=== PATIENT | female | born 1960 | race Caucasian/White ===

== ENCOUNTER 2017-10-08 03:19 | Emergency (ER) | payer BC, MEDICAID ==
[~2017-10-08] VITALS: Ht 157.5 cm; Wt 72.1 kg
[2017-10-08 03:21] VITALS: BP 146/89
[2017-10-08] MEDS ORDERED: LEVO75TA5 PO (03:47)
== END 2017-10-08 05:38 | disposition home or self-care (01) ==
LOC: ED 04:45
DX: R05 Cough (principal); R11.10 Vomiting, unspecified; Z90.89 Acquired absence of other organs
CPT/HCPCS: 71020; 99284

== ENCOUNTER 2017-10-17 20:41 | Emergency (ER) | payer MEDICAID ==
[~2017-10-17] VITALS: Ht 157.5 cm; Wt 70.4 kg
[~2017-10-17 20:41] MED LIST: LEVO75TA5 PO
[2017-10-17 20:43] VITALS: BP 157/87
[2017-10-17] MEDS ORDERED: ONDANSETRON ODT 4 MG PO ONE (21:00)
[2017-10-17] MEDS ORDERED: ONDANSETRON ODT 4 MG ONE (21:16)
== END 2017-10-17 22:28 | disposition home or self-care (01) ==
LOC: ED 22:05
DX: S09.90XA Unspecified injury of head, initial encounter (principal); R11.0 Nausea; E03.9 Hypothyroidism, unspecified; V49.9XXA Car occupant (driver) (passenger) injured in unspecified traffic accident, initial encounter; Y93.89 Activity, other specified; Y92.89 Other specified places as the place of occurrence of the external cause; Y99.8 Other external cause status
CPT/HCPCS: 70450; 99284

== ENCOUNTER 2017-11-06 18:31 | Emergency (ER) | payer MEDICAID, OTHER ==
[~2017-11-06] VITALS: Ht 157.5 cm; Wt 69.3 kg
[2017-11-06 18:33] VITALS: BP 158/89
[2017-11-06] MEDS ORDERED: ASPIRIN 81 MG TABLET CHEW PO ONE (19:00)
[2017-11-06 19:10] LABS: BASOPHILS # (AUTO) 0.06 x10^3/uL (0-0.1); BASOPHILS % (AUTO) 1 % (0-1); EOSINOPHILS % (AUTO) 3 % (1-7); LYMPHOCYTES # (AUTO) 2.95 x10^3/uL (1-3.4); LYMPHOCYTES % (AUTO) 48 % (22-44); MD NO; MEAN CORPUSCULAR HEMOGLOBIN 31.8 pg (27.0-34.8); MEAN CORPUSCULAR HGB CONC 33.4 g/dL (32.4-35.8); MEAN CORPUSCULAR VOLUME 95.2 fL (80-100); MEAN PLATELET VOLUME 9.4 fL (7.4-10.4); MONOCYTES # (AUTO) 0.42 x10^3/uL (0.2-0.8); MONOCYTES % (AUTO) 7 % (2-9); NEUTROPHILS % (AUTO) 41 % (42-75); PLATELET COUNT 284 x10^3/uL (130-400); RED BLOOD COUNT 4.43 x10^6/uL (3.82-5.3); RED CELL DISTRIBUTION WIDTH 12.7 % (9.6-15.2)
[2017-11-06 19:19] LABS: ALBUMIN 4.4 g/dL (3.4-5.0); ANION GAP 7 mmol/L (5-15); CALCIUM 8.9 mg/dL (8.5-10.1); CHLORIDE 106 mmol/L (98-107); CREATININE 1.28 mg/dL (0.55-1.02)
[2017-11-06 19:23] LABS: TROPONIN I < 0.015 ng/mL (0.000-0.045)
[2017-11-06] MEDS ORDERED: ASPIRIN 81 MG TABLET CHEW ONE (19:25)
== END 2017-11-06 21:06 | disposition home or self-care (01) ==
LOC: ED 20:45
DX: R07.2 Precordial pain (principal); F41.1 Generalized anxiety disorder
CPT/HCPCS: 36415; 71046; 80048; 82040; 83880; 84484; 85025; 93005; 99285

== ENCOUNTER 2019-12-30 04:25 | Emergency (ER) | payer MEDICAID ==
[~2019-12-30] VITALS: Ht 160 cm; Wt 55.4 kg
[~2019-12-30 04:25] MED LIST changes: +BUSP7.5T3 PO
[2019-12-30 04:27] VITALS: BP 148/90
[2019-12-30 05:55] LABS: MEAN CORPUSCULAR HEMOGLOBIN 32.2 pg (27.0-34.8); MEAN CORPUSCULAR HGB CONC 34.1 g/dL (32.4-35.8); MEAN CORPUSCULAR VOLUME 94.4 fL (80-100); MEAN PLATELET VOLUME 9.7 fL (7.4-10.4); PLATELET COUNT 263 x10^3/uL (130-400); RED BLOOD COUNT 4.21 x10^6/uL (3.82-5.3); RED CELL DISTRIBUTION WIDTH 12.8 % (9.6-15.2)
[2019-12-30 06:04] LABS: ALANINE AMINOTRANSFERASE 24 U/L (12-78); ALBUMIN 4.1 g/dL (3.4-5.0); ANION GAP 7 mmol/L (5-15); CHLORIDE 102 mmol/L (98-107); CREATININE 0.99 mg/dL (0.55-1.02); T4 (THYROXINE) 11.7 mcg/dL (4.8-13.9)
--- NOTE | 2019-12-30 06:06 | NUR ---
PT REQUESTING A MEDICATION TO SLOW HER HEART RATE. PT WAS INFORMED HER HEART RATE IS 90 AND REGULAR. PT INSISTS IT IS TOO HIGH. INFORMED. ATARAX ORDERED HOWEVER STATES TO HOLD IF PT IS DRIVING HOME. THIS WAS DISCUSSED WITH PT WHOM STATES SHE HAS ANXIOLYTIC MEDS AT HOME AND DOES NOT WANT THE ATARAX AT THIS TIME. UA OBTAINED AND TUBED TO LAB. PT WAS UNABLE TO PRODUCE STOOL SAMPLE. PT DENIES FURTHER NEEDS AT THIS TIME. CALL LIGHT ON LAP.
[2019-12-30 06:12] LABS: ALKALINE PHOSPHATASE 59 U/L (45-117); BILIRUBIN,TOTAL 0.5 mg/dL (0.2-1.0); TOTAL PROTEIN 7.8 g/dL (6.4-8.2)
[2019-12-30 06:19] LABS: CULTURE INDICATED? NO; MICROSCOPIC NOT IND
[2019-12-30 06:45] LABS: BASOPHILS # (AUTO) 0.02 x10^3/uL (0-0.1); BASOPHILS % (AUTO) 1 % (0-1); EOSINOPHILS # (AUTO) 0.02 x10^3/uL (0-0.4); EOSINOPHILS % (AUTO) 1 % (1-7); LYMPHOCYTES # (AUTO) 0.86 x10^3/uL (1-3.4); LYMPHOCYTES % (AUTO) 33 % (22-44); MD SCAN; MONOCYTES # (AUTO) 0.24 x10^3/uL (0.2-0.8); MONOCYTES % (AUTO) 9 % (2-9); NEUTROPHILS # (AUTO) 1.46 x10^3/uL (1.8-6.8); NEUTROPHILS % (AUTO) 56 % (42-75)
[2019-12-30 08:27] LABS: CLOSTRIDIUM DIFFICILE ANTIGEN NEGATIVE; CLOSTRIDIUM DIFFICILE TOXIN NEGATIVE (Negative)
--- NOTE | 2019-12-30 09:12 | NUR ---
Patient given discharge instructions and they have confirmed that they understand the instructions. Patient ambulatory with steady gait.
== END 2019-12-30 09:13 | disposition home or self-care (01) ==
LOC: ED 06:11
DX: F41.1 Generalized anxiety disorder (principal); R19.7 Diarrhea, unspecified; E03.9 Hypothyroidism, unspecified
CPT/HCPCS: 36415; 80053; 81003; 83690; 84436; 84481; 85025; 87324; 89055; 99283

== ENCOUNTER 2020-01-02 19:47 | Emergency (ER) | payer MEDICAID ==
[~2020-01-02] VITALS: Ht 160 cm; Wt 55.3 kg
[2020-01-02 19:51] VITALS: BP 152/84
[2020-01-02 20:38] LABS: BASOPHILS # (AUTO) 0.02 x10^3/uL (0-0.1); BASOPHILS % (AUTO) 0 % (0-1); EOSINOPHILS # (AUTO) 0.04 x10^3/uL (0-0.4); EOSINOPHILS % (AUTO) 1 % (1-7); LYMPHOCYTES # (AUTO) 1.28 x10^3/uL (1-3.4); LYMPHOCYTES % (AUTO) 37 % (22-44); MD NO; MEAN CORPUSCULAR HGB CONC 33.8 g/dL (32.4-35.8); MEAN CORPUSCULAR VOLUME 94.6 fL (80-100); MEAN PLATELET VOLUME 8.9 fL (7.4-10.4); MONOCYTES # (AUTO) 0.31 x10^3/uL (0.2-0.8); MONOCYTES % (AUTO) 9 % (2-9); NEUTROPHILS # (AUTO) 1.84 x10^3/uL (1.8-6.8); NEUTROPHILS % (AUTO) 53 % (42-75); PLATELET COUNT 272 x10^3/uL (130-400); RED BLOOD COUNT 4.07 x10^6/uL (3.82-5.3); RED CELL DISTRIBUTION WIDTH 12.5 % (9.6-15.2)
[2020-01-02 20:50] LABS: ALBUMIN 4.1 g/dL (3.4-5.0); ANION GAP 14 mmol/L (5-15); CHLORIDE 92 mmol/L (98-107)
[2020-01-02 21:01] LABS: CREATININE 0.87 mg/dL (0.55-1.02)
[2020-01-02 21:02] LABS: ALANINE AMINOTRANSFERASE 22 U/L (12-78); ALKALINE PHOSPHATASE 57 U/L (45-117); BILIRUBIN,TOTAL 0.7 mg/dL (0.2-1.0); TOTAL PROTEIN 7.4 g/dL (6.4-8.2)
[2020-01-02 21:14] LABS: FREE T4 (FREE THYROXINE) 1.51 ng/dL (0.76-1.46)
[2020-01-02 21:15] LABS: MICROSCOPIC NOT IND
[2020-01-02 21:20] LABS: CULTURE INDICATED? NO
== END 2020-01-02 22:14 | disposition home or self-care (01) ==
LOC: ED 20:15
DX: R10.13 Epigastric pain (principal); R11.0 Nausea; E03.9 Hypothyroidism, unspecified; Z90.89 Acquired absence of other organs
CPT/HCPCS: 36415; 80053; 81003; 84439; 84443; 85025; 99283

== ENCOUNTER 2020-01-19 12:30 | Emergency (ER) | payer MEDICAID ==
[~2020-01-19] VITALS: Ht 160 cm; Wt 54.4 kg
[2020-01-19] MEDS ORDERED: RIFA550T4 PO (13:02)
[2020-01-19] MEDS ORDERED: NEOM500T PO (13:02)
[2020-01-19] MEDS ORDERED: LORazepam 1MG TABLET PO ONE (13:30)
--- NOTE | 2020-01-19 13:30 | NUR ---
PT RESTING QUIETLY ON BED, USING OWN CELL PHONE. PT NOTIFIED OF NEED FOR URINE SPECIMEN.
--- NOTE | 2020-01-19 13:39 | NUR ---
PT WAS AMBULATORY TO & FROM [facility] W/OUT INCIDENT; GAIT STEADY. VOIDED SPECIMEN PROVIDED. PT THEN AMBULATORY TO XR, ACCOMPANIED BY XR TECH.
[2020-01-19] MEDS ORDERED: LEVO50TA5 PO (13:42)
[2020-01-19] MEDS ORDERED: NORT10CA PO (13:42)
[2020-01-19 13:44] LABS: MICROSCOPIC NOT IND
[2020-01-19 13:45] LABS: CULTURE INDICATED? NO
--- NOTE | 2020-01-19 13:45 | NUR ---
PT RETURNED TO ROOM. U/S NOW AT BS.
[2020-01-19 14:07] LABS: BASOPHILS # (AUTO) 0.03 x10^3/uL (0-0.1); BASOPHILS % (AUTO) 1 % (0-1); EOSINOPHILS # (AUTO) 0.01 x10^3/uL (0-0.4); EOSINOPHILS % (AUTO) 1 % (1-7); LYMPHOCYTES # (AUTO) 0.95 x10^3/uL (1-3.4); LYMPHOCYTES % (AUTO) 31 % (22-44); MD NO; MEAN CORPUSCULAR HGB CONC 33.4 g/dL (32.4-35.8); MEAN CORPUSCULAR VOLUME 95.8 fL (80-100); MEAN PLATELET VOLUME 8.5 fL (7.4-10.4); MONOCYTES # (AUTO) 0.26 x10^3/uL (0.2-0.8); MONOCYTES % (AUTO) 8 % (2-9); NEUTROPHILS # (AUTO) 1.83 x10^3/uL (1.8-6.8); NEUTROPHILS % (AUTO) 59 % (42-75); PLATELET COUNT 301 x10^3/uL (130-400); RED BLOOD COUNT 4.39 x10^6/uL (3.82-5.3); RED CELL DISTRIBUTION WIDTH 13.1 % (9.6-15.2)
[2020-01-19 14:15] LABS: ALANINE AMINOTRANSFERASE 40 U/L (12-78); ALBUMIN 4.3 g/dL (3.4-5.0); ANION GAP 6 mmol/L (5-15); CALCIUM 9.5 mg/dL (8.5-10.1); CHLORIDE 98 mmol/L (98-107); CREATININE 0.93 mg/dL (0.55-1.02)
[2020-01-19] MEDS ORDERED: LORazepam 1MG TABLET ONE (14:15)
[2020-01-19 14:17] LABS: ALKALINE PHOSPHATASE 60 U/L (45-117); BILIRUBIN,TOTAL 0.7 mg/dL (0.2-1.0); TOTAL PROTEIN 7.8 g/dL (6.4-8.2)
--- NOTE | 2020-01-19 14:20 | NUR ---
ATIVAN GIVEN PER EMAR. PT SITTING QUIETLY ON BED, USING OWN CELL PHONE. SIDE RAIL UP X1, CALL LIGHT W/IN REACH.
--- NOTE | 2020-01-19 14:22 | NUR ---
REPORTS BEING ANXIOUS.
[2020-01-19 14:31] LABS: T4 (THYROXINE) 12.1 mcg/dL (4.8-13.9)
--- NOTE | 2020-01-19 15:26 | NUR ---
PT ASKED ABOUT EATING THE FOOD SHE BROUGHT WITH HER. WILL CONSULT ERP.
[2020-01-19] MEDS ORDERED: MAALOX/HYOSCYAMINE/LIDOCAINE 45 ML BTL PO ONE (15:30)
[2020-01-19] MEDS ORDERED: MAALOX/HYOSCYAMINE/LIDOCAINE 45 ML BTL ONE (15:33)
--- NOTE | 2020-01-19 15:37 | NUR ---
PT RESTING QUIETLY ON BED. GI COCKTAIL GIVEN PER EMAR.
--- NOTE | 2020-01-19 16:18 | NUR ---
DR SANCHEZ BS TO DISCUSS POC
[2020-01-19 17:06] VITALS: BP 121/73
== END 2020-01-19 17:08 | disposition home or self-care (01) ==
LOC: ED 13:50
DX: K29.00 Acute gastritis without bleeding (principal); F41.1 Generalized anxiety disorder; Z87.891 Personal history of nicotine dependence
CPT/HCPCS: 36415; 74022; 76700; 80053; 81003; 83690; 84436; 84443; 85025; 93005; 99285

== ENCOUNTER 2020-01-22 02:52 | Emergency (ER) | payer MEDICAID ==
[~2020-01-22] VITALS: Ht 157.5 cm; Wt 53.0 kg
[~2020-01-22 02:52] MED LIST changes: +LEVO50TA5 PO; +NEOM500T PO; +NORT10CA PO; +RIFA550T4 PO
[2020-01-22 02:57] VITALS: BP 110/75
--- NOTE | 2020-01-22 03:10 | NUR ---
PT TO ED WITH C/O HIGH HEART RATE, HIGH BLOOD PRESSURE AND REPORTED PALPITATIONS. REPORTS "EVERYTHING I EAT MAKES MY ENDOCRINE SYSTEM REJECT IT, SO WHEN I EAT MY BLOOD PRESSURE AND HEART RATE GO THROUGH THE ROOF". PT REPORTS ATIVAN WAS HELPING TREAT HER HASHIMOTOS. PT REPORTS MEETING WITH A FAMOUS THYROID DOCTOR IN [place] YESTERDAY. 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 EKG DONE ON TRIAGE, ALL MONITORING APPLIED, CALL LIGHT WITHIN REACH.
[2020-01-22 03:25] LABS: MEAN CORPUSCULAR HEMOGLOBIN 31.8 pg (27.0-34.8); MEAN CORPUSCULAR HGB CONC 33.5 g/dL (32.4-35.8); MEAN CORPUSCULAR VOLUME 94.9 fL (80-100); MEAN PLATELET VOLUME 8.9 fL (7.4-10.4); PLATELET COUNT 279 x10^3/uL (130-400); RED CELL DISTRIBUTION WIDTH 13.3 % (9.6-15.2)
[2020-01-22 03:34] LABS: ALANINE AMINOTRANSFERASE 32 U/L (12-78); ALBUMIN 3.9 g/dL (3.4-5.0); ANION GAP 6 mmol/L (5-15); CALCIUM 9.1 mg/dL (8.5-10.1); CHLORIDE 98 mmol/L (98-107); CREATININE 1.02 mg/dL (0.55-1.02); T4 (THYROXINE) 11.4 mcg/dL (4.8-13.9)
[2020-01-22 03:39] LABS: ALKALINE PHOSPHATASE 60 U/L (45-117); BILIRUBIN,TOTAL 0.6 mg/dL (0.2-1.0); TOTAL PROTEIN 7.3 g/dL (6.4-8.2); TROPONIN I < 0.015 ng/mL (0.000-0.045)
[2020-01-22 03:43] LABS: MD YES
[2020-01-22 03:44] LABS: BASOS#(MANUAL) 0.03 x10^3/uL (0-0.1); BASOS% (MANUAL) 1 % (0-1); EOS#(MANUAL) 0.09 x10^3/uL (0.0-0.4); EOS% (MANUAL) 3 % (1-7); LYMPH#(MANUAL) 1.13 x10^3/uL (1-3.4); LYMPHS% (MANUAL) 39 % (22-44); MONOS#(MANUAL) 0.12 x10^3/uL (0.3-2.7); MONOS% (MANUAL) 4 % (2-9); MYELOCYTES# (MANUAL) 0.03 x10^3/uL (0-0); MYELOCYTES% (MANUAL) 1 % (0-0); REACTIVE LYMPHS # (MANUAL) 0.38 x10^3/uL (0-0); REACTIVE LYMPHS % (MANUAL) 13 % (0-0); SEG#(MANUAL) 1.13 x10^3/uL (1.8-6.8); SEGS% (MANUAL) 39 % (42-75)
[2020-01-22 03:46] LABS: <PLATELET ESTIMATE> ADEQUATE; <PLT MORPHOLOGY> NORMAL PLT MORPH; <RBC MORPHOLOGY> NORMAL
== END 2020-01-22 04:22 | disposition home or self-care (01) ==
LOC: ED 03:27
DX: R00.2 Palpitations (principal); E03.9 Hypothyroidism, unspecified; I10 Essential (primary) hypertension; Z87.891 Personal history of nicotine dependence; Z90.89 Acquired absence of other organs
CPT/HCPCS: 36415; 80053; 83735; 84436; 84443; 84484; 85025; 93005; 99284

== ENCOUNTER 2020-02-25 12:22 | Emergency (ER) | payer MEDICAID ==
[~2020-02-25] VITALS: Ht 160 cm; Wt 48.0 kg
--- NOTE | 2020-02-25 12:49 | NUR ---
PT C/O RADIATION TOXICITY FROM CT YESTERDAY. PT STATES RADIATION TOXICITY GIVES HER PANIC ATTACKS, HX ANXIETY WITH MEDS. PT STATES HOMEOPATHIC REMEDIES HAVE WORKED IN THE PAST. SHE HAD THE FIRST HOMEOPATHIC PROCEDURE THIS AM. PT STATES SHE IS FEELING BETTER NOW. PT CONNECTED TO MONITORING. CALL LIGHT IN REACH. PT PREFERS TO SIT IN CHAIR.
[2020-02-25 13:38] VITALS: BP 128/80
--- NOTE | 2020-02-25 13:38 | NUR ---
PT RESTING COMFORTABLY ON GURNEY. NADN. WARM BLANKET PROVIDED.
== END 2020-02-25 14:42 | disposition home or self-care (01) ==
LOC: ED 14:21
DX: R11.0 Nausea (principal); R00.2 Palpitations; R06.00 Dyspnea, unspecified; Z90.89 Acquired absence of other organs; Z87.891 Personal history of nicotine dependence; Z00.00 Encounter for general adult medical examination without abnormal findings
CPT/HCPCS: 99281

== ENCOUNTER 2020-02-29 09:46 | Emergency (ER) | payer MEDICAID ==
[~2020-02-29] VITALS: Ht 160 cm; Wt 48.6 kg
--- NOTE | 2020-02-29 10:16 | NUR ---
THIS IS A 59 YO F W/ C/O EXTREME FATIGUE AND ANXIETY X1 WEEK, SOB, N/V AND DIFFICULTY SLEEPING. TOOK 5MG BUSPAR W/ NO RELIEF. PT REPORTS SHE WAS TOLD BY HER HOMEOPATHIC MD THAT SHE HAS RADIATION TOXICITY FROM A CT SCAN DONE W/O CONTRAST LAST WEEK. PT RESTING ON GURNEY W/ CALL LIGHT IN REACH, VSS, NADN. SIDE RAILS UPX2. DR. FORTUNE AT BEDSIDE.
--- NOTE | 2020-02-29 10:29 | NUR ---
RAD IN ROOM.
[2020-02-29 10:53] LABS: BASOPHILS # (AUTO) 0.02 x10^3/uL (0-0.1); BASOPHILS % (AUTO) 1 % (0-1); EOSINOPHILS # (AUTO) 0.02 x10^3/uL (0-0.4); EOSINOPHILS % (AUTO) 1 % (1-7); LYMPHOCYTES % (AUTO) 27 % (22-44); MD NO; MEAN CORPUSCULAR HEMOGLOBIN 32.4 pg (27.0-34.8); MEAN CORPUSCULAR HGB CONC 33.5 g/dL (32.4-35.8); MEAN CORPUSCULAR VOLUME 96.7 fL (80-100); MEAN PLATELET VOLUME 8.7 fL (7.4-10.4); MONOCYTES # (AUTO) 0.21 x10^3/uL (0.2-0.8); MONOCYTES % (AUTO) 7 % (2-9); NEUTROPHILS # (AUTO) 1.91 x10^3/uL (1.8-6.8); NEUTROPHILS % (AUTO) 65 % (42-75); PLATELET COUNT 315 x10^3/uL (130-400); RED BLOOD COUNT 4.43 x10^6/uL (3.82-5.3); RED CELL DISTRIBUTION WIDTH 13.2 % (9.6-15.2)
[2020-02-29 10:55] LABS: ALANINE AMINOTRANSFERASE 22 U/L (12-78); ALBUMIN 3.9 g/dL (3.4-5.0); ANION GAP 5 mmol/L (5-15); CALCIUM 8.6 mg/dL (8.5-10.1); CHLORIDE 103 mmol/L (98-107); CREATININE 0.99 mg/dL (0.55-1.02)
[2020-02-29 10:59] LABS: ALKALINE PHOSPHATASE 59 U/L (45-117); BILIRUBIN,TOTAL 0.4 mg/dL (0.2-1.0); TOTAL PROTEIN 7.3 g/dL (6.4-8.2); TROPONIN I < 0.015 ng/mL (0.000-0.045)
--- NOTE | 2020-02-29 11:00 | NUR ---
ALL TESTS RESULTED. PT IS UP FOR RECHECK AT THIS TIME.
[2020-02-29 11:13] VITALS: BP 132/85
--- NOTE | 2020-02-29 11:42 | NUR ---
Patient given discharge instructions and they have confirmed that they understand the instructions. Patient wheeled to dc desk.
== END 2020-02-29 11:43 | disposition home or self-care (01) ==
LOC: ED 10:22
DX: R53.82 Chronic fatigue, unspecified (principal); R10.13 Epigastric pain; R53.1 Weakness; F41.9 Anxiety disorder, unspecified; R07.89 Other chest pain; E03.9 Hypothyroidism, unspecified; I25.2 Old myocardial infarction
CPT/HCPCS: 36415; 71045; 80053; 84443; 84484; 85025; 93005; 99285